=== PATIENT | male | born 1955 | race Caucasian/White ===

== ENCOUNTER 2017-01-24 09:46 | Day surgery (SDC) | payer OTHER ==
[~2017-01-24 09:46] MED LIST: KETOROLAC TROMETHAMINE 0.45% 4 DROP/0.4 ML DROPERETTE OD PRN
[2017-01-24] MEDS: BESIFLOXACIN HCL 0.6% OPH SUSP 5 ML BOTTLE OD PRN ×4 (09:54→10:48)
[2017-01-24] MEDS: CYCLOPENTOLATE 0.2%/PHENYLEPHRINE 1% OPH SOLN 2 ML OD PRN ×3 (09:54→10:11)
[2017-01-24] MEDS: TETRACAINE HCL 0.5% OPH SOLN 2 ML OD PRN ×3 (09:54→10:25)
[2017-01-24] MEDS: TROPICAMIDE 1% OPH SOLN 3 ML OD PRN ×3 (09:54→10:11)
[2017-01-24] MEDS ORDERED: EPINEPHRINE INJ/PF 1 MG/1 ML AMPULE ONE (10:09)
[2017-01-24] MEDS ORDERED: CHONDR SU A NA/HYALUR INTRAOC KIT (SURGICARE) ONE (10:10)
[2017-01-24] MEDS ORDERED: LIDOCAINE 1% INJ-PF (10 MG/ML) 30 ML SDV ONE (10:10)
[2017-01-24] MEDS ORDERED: MIDAZOLAM 2 MG/2 ML INJ ONE (10:20)
[2017-01-24] MEDS ORDERED: FENTANYL CITRATE INJ/PF 100 MCG/2 ML AMPUL ONE (10:21)
--- NOTE | 2017-01-25 07:48 | [facility] OPERATIVE REPORT E ---
[facility] Operative Report NAME: KELLEN PERSAUD AGE: 61Y DATE OF SURGERY: 01/24/2017 ROOM: PREOPERATIVE DIAGNOSIS: CATARACT, RIGHT EYE. POSTOPERATIVE DIAGNOSIS: CATARACT, RIGHT EYE. OPERATION: Cataract extraction with intraocular lens implant of the right eye. SURGEON: LUDWIG APONTE M.D. ANESTHESIA: Topical. PROCEDURE: After obtaining appropriate consent, the patient's right eye was prepped and draped in sterile fashion as well as the surgeon in a sterile manner and cataract surgery was started. First a paracentesis blade was used to make a small side-port incision. Viscoelastic was used to inflate the anterior chamber. Next a 2.4 mm incision was made with the paracentesis blade. A continuous capsulorrhexis incision was made using a cystotome and Utrata forceps. Following this hydrodissection was carried out to make the lens fully loose and mobile and it was rotated 90 degrees. Following this, a nrgjhj-fwi-szvdrnx technique was used to phacoemulsify the lens with a CDE of 4.87. The remaining cortex was removed with irrigation/aspiration. Provisc was instilled into the capsular bag to inflate the bag. A SN60WF, 20.5 diopter lens was placed. The remaining viscoelastic material was removed with irrigation/aspiration. Following this, a 10-0 Nylon suture was used to close the incision and it was found to be watertight. Vigamox was instilled in the eye and a protective shield was placed over the eye. The patient returned to the postoperative recovery in stable condition. DICTATING PHYSICIAN: LUDWIG APONTE M.D. [id number] PHY#: [id number] ID: [id number] JOB#: [id number] ACCT: [id number] cc:LUDWIG APONTE M.D. >
--- NOTE | 2017-01-25 07:53 | [facility] DISCHARGE SUMMARY E ---
[facility] Discharge Summary NAME: KELLEN PERSAUD AGE: 61Y ADMITTED: 01/24/2017 DISCHARGED: 01/24/2017 HOSPITAL COURSE: This is a 61-year-old patient who underwent cataract extraction of the right eye. DIAGNOSIS: CATARACT, RIGHT EYE. INDICATIONS: He underwent surgery because he is having difficulty seeing TV. DISCHARGE INSTRUCTIONS: He should be on a regular diet; no bending at his waist; no heavy lifting. He should use his Besivance, Ilevro and Durezol at 3:00 p.m. and 8:00 p.m.; and, sleep with a rigid shield, and I will see him for his 1-day postoperative tomorrow. DICTATING PHYSICIAN: LUDWIG APONTE M.D. [id number] PHY#: [id number] ID: [id number] JOB#: [id number] ACCT: [id number] cc:LUDWIG APONTE M.D. >
== END 2017-01-24 11:30 | disposition home or self-care (01) ==
LOC: SC 09:46
PROVIDERS: ATTEND Internal Medicine
PROC: 08RJ3JZ Replacement of Right Lens with Synthetic Substitute, Percutaneous Approach (ICD-10-PCS; principal; 2017-01-24 11:00)
DX: H25.11 Age-related nuclear cataract, right eye (principal); H18.51 Endothelial corneal dystrophy; J45.909 Unspecified asthma, uncomplicated; G47.30 Sleep apnea, unspecified; M19.90 Unspecified osteoarthritis, unspecified site; Z87.891 Personal history of nicotine dependence
CPT/HCPCS: 66984; V2632; J2250; J3490 ×2; J0171; J3010; 142

== ENCOUNTER → 2018-05-12 | Outpatient (CLI) | payer OTHER ==
[2018-05-15 11:39] LABS: HEPATITIS C QUANTITATION See Final Results IU/mL (.); HEPATITIS C RNA IU 21200000 IU/mL (.)
[2018-05-15 11:44] LABS: HEPATITIS C LOG 10 7.326 (.)
== END ==
LOC: OD 09:49
PROVIDERS: ATTEND Nurse Practitioner Primary Care
DX: R94.5 Abnormal results of liver function studies (principal); R76.8 Other specified abnormal immunological findings in serum
CPT/HCPCS: 36415; 87522